=== PATIENT | female | born 1975 | race Caucasian/White ===

== ENCOUNTER 2016-09-07 20:19 | Emergency (ER) | payer BC ==
[~2016-09-07] VITALS: Ht 162.6 cm; Wt 84.4 kg
[~2016-09-07 20:19] MED LIST: CALC-464 PO; CALC-706 PO; CITA20TA12 PO; DESV50TA PO; FAMO20TA13 PO; FISH1CAP15 PO; HYDR25TA4 PO; LEVO125T6 PO; MULT-974 PO; NORG1TAB PO; OMEG1CAP51 PO; ONDA4TAB11 PO; TRAM50TA2 PO; VIT1TABL93 PO
[2016-09-07 20:38] LABS: BASOPHILS # (AUTO) 0.1 10^3/uL (0.0-0.1); BASOPHILS % (AUTO) 1 % (0-10); EOSINOPHILS # (AUTO) 0.2 10^3/uL (0.0-0.3); EOSINOPHILS % (AUTO) 2 % (0-10); LYMPHOCYTES # (AUTO) 4.9 X 10^3 (1.0-4.0); LYMPHOCYTES % (AUTO) 44 % (12-44); MEAN CORPUSCULAR HEMOGLOBIN 29 PG (25-34); MEAN CORPUSCULAR HGB CONC 34 G/DL (32-36); MEAN CORPUSCULAR VOLUME 86 FL (80-99); MEAN PLATELET VOLUME 10.3 FL (7.4-10.4); MONOCYTES # (AUTO) 0.8 X 10^3 (0.0-1.0); MONOCYTES % (AUTO) 7 % (0-12); NEUTROPHILS # (AUTO) 5.1 X 10^3 (1.8-7.8); NEUTROPHILS % (AUTO) 46 % (42-75); PLATELET COUNT 366 10^3/uL (130-400); RED BLOOD COUNT 4.48 10^6/uL (4.35-5.85); RED CELL DISTRIBUTION WIDTH 13.6 % (10.0-14.5); WHITE BLOOD COUNT 11.1 10^3/uL (4.3-11.0)
--- NOTE | 2016-09-07 20:44 | Diagnostic Imaging Report ---
INDICATION: Upper anterior chest pain x 3 days. EXAMINATION: Portable chest at 8:39 p.m. FINDINGS: Heart size and pulmonary vascularity are normal. Lungs are clear. There are no effusions or pneumothoraces. IMPRESSION: Negative chest. Dictated by: Dictated on workstation # [id number]
[2016-09-07 20:48] LABS: INR 0.9 (0.8-1.4); PROTHROMBIN TIME PATIENT 11.7 SEC (12.2-14.7)
[2016-09-07] MEDS ORDERED: ASPIRIN 81 MG CHEW (CHILDREN'S ASA) PO ONE (21:00)
[2016-09-07 21:04] LABS: ALANINE AMINOTRANSFERASE 16 U/L (0-55); ALBUMIN 4.1 G/DL (3.2-4.5); ANION GAP 11 MMOL/L (5-14); ASPARTATE AMINO TRANSFERASE 22 U/L (5-34); BILIRUBIN,TOTAL 0.2 MG/DL (0.1-1.0); BLOOD UREA NITROGEN 10 MG/DL (7-18); BUN/CREATININE RATIO 13; CALCIUM 8.9 MG/DL (8.5-10.1); CARBON DIOXIDE 26 MMOL/L (21-32); CHLORIDE 103 MMOL/L (98-107); GFR ESTIMATED > 60; GLUCOSE 102 MG/DL (70-105); MAGNESIUM 2.1 MG/DL (1.8-2.4); POTASSIUM 3.3 MMOL/L (3.6-5.0); TOTAL PROTEIN 7.1 G/DL (6.4-8.2)
[2016-09-07 21:14] LABS: SODIUM 140 MMOL/L (135-145)
--- NOTE | 2016-09-07 21:17 | ED Chest Pain ---
General Chief Complaint: Chest Pain Stated Complaint: CHEST PAIN Nursing Triage Note: PT TO ED 2 W/ C/O INTERMITTENT CP SINCE THURSDAY. 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 Nursing Sepsis Screen: No Definite Risk Source: patient Exam Limitations: no limitations History of Present Illness Time seen by provider: 20:23 Initial Comments This 40-year-old woman presents to the emergency room with complaints of intermittent chest pain since September 05. She has had associated lightheadedness. Today the patient started tonight at 19:00. She denies pain at this moment. Pain is sometimes worse with deep breathing and exertion. It is not relieved by rest. She reports recent dosing changes to her thyroid medication. She describes the pain as a heaviness and sometimes a tightness. She denies any shortness of breath, nausea, or diaphoresis. Review of her chart reveals a negative stress test in January of last year. There is no tachycardia or hypoxia. She has no lower extremity symptoms. Allergies and Home Medications Allergies Coded Allergies: Sulfa (Sulfonamide Antibiotics) (Verified Allergy, Unknown, 02/22/14) Home Medications Calcium Citrate/Ergocalciferol 1 Each Tablet, 1 EACH PO DAILY, (Reported) Citalopram Hydrobromide 20 Mg Tablet, 30 MG PO DAILY, (Reported) Famotidine 20 Mg Tablet, 20 MG PO BID for 30 Days Prescribed by: BETHANY DAVEY on 02/23/14 9180 Fish Oil/Dha/Epa 1 Each Capsule, 1 EACH PO DAILY, (Reported) Hydrochlorothiazide 25 Mg Tablet, 25 MG PO DAILY, (Reported) Levothyroxine Sodium 125 Mcg Tablet, 125 MCG PO DAILY, (Reported) Vit D3/Folic Acid/B2/B6/B12 1 Each Tablet, 1 EACH PO DAILY, (Reported) Review of Systems Constitutional: no symptoms reported EENTM: No Symptoms Reported Respiratory: See HPI Cardiovascular: See HPI Gastrointestinal: No Symptoms Reported Genitourinary: No Symptoms Reported Musculoskeletal: no symptoms reported Skin: no symptoms reported Psychiatric/Neurological: No Symptoms Reported Endocrine: See HPI Hematologic/Lymphatic: No Symptoms Reported Past Zfncnrj-Upzpkj-Ywhwcd Hx Patient Social History Alcohol Use: Denies Use Recreational Drug Use: No Smoking Status: Never a Smoker Recent Foreign Travel: No Contact w/Someone Who Travel: No Recent Infectious Disease Expo: No Recent Hopitalizations: No Immunizations Up To Date Tetanus Booster (TDap): More than 5yrs PED Vaccines UTD: No Date of Influenza Vaccine: Mar 24, 2013 Seasonal Allergies Seasonal Allergies: Yes Surgeries HX Surgeries: Yes (wisdom teeth) Surgeries: Thyroidectomy (hemithyroidectomy) Respiratory Hx Respiratory Disorders: No Cardiovascular Hx Cardiac Disorders: Yes Cardiac Disorders: Hypertension Neurological Hx Neurological Disorders: No Reproductive System Hx Reproductive Disorders: No Sexually Transmitted Disease: No HIV/AIDS: No Female Reproductive Disorders: Denies [employer] History: IUD (Mirena) Genitourinary Hx Genitourinary Disorders: No Gastrointestinal Hx Gastrointestinal Disorders: Yes (gluten intolerance) Gastrointestinal Disorders: Gastroesophageal Reflux Musculoskeletal Hx Musculoskeletal Disorders: No Endocrine Hx Endocrine Disorders: Yes (hypokalemia, insulin resistance) Endocrine Disorders: Hypothyroidsim HEENT HX ENT Disorders: No Hearing Impairment: Denies Cancer Hx Cancer: No Psychosocial Hx Psychiatric Problems: Yes Behavioral Health Disorders: Anxiety, Depression Integumentary HX Skin/Integumentary Disorder: No Blood Transfusions Hx Blood Disorders: No Adverse Reaction to a Blood Tr: No Family Medical History Significant Family History: No Pertinent Family Hx, Cancer (brain tumor) Family Medial History: Cancer of mouth 19 MOTHER (Brain tumer fibroids in uterus) Diabetes mellitus 19 FATHER Hypercholesterolemia 19 FATHER Hypertension 19 FATHER Physical Exam Vital Signs Vital Sign - Last 12Hours Capillary Refill : Less Than 3 Seconds General Appearance: No Apparent Distress, WD/WN HEENT: PERRL/EOMI, Normal ENT Inspection, Pharynx Normal Neck: Normal Inspection Respiratory: Chest Non Tender, Lungs Clear, Normal Breath Sounds, No Accessory Muscle Use, No Respiratory Distress Cardiovascular: Regular Rate, Rhythm, No Edema, No Murmur, Normal Peripheral Pulses Gastrointestinal: Non Tender, Soft Extremity: Normal Inspection, Non Tender, No Calf Tenderness, No Pedal Edema, Other (negative Shameka) Neurologic/Psychiatric: Alert, Oriented x3, No Motor/Sensory Deficits, Normal Mood/Affect, 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 Skin: Normal Color, Warm/Dry Progress/Results/Core Measures Results/Orders Lab Results Laboratory Tests Test 09/07/16 20:32 Range/Units White Blood Count 11.1 H 4.3-11.0 10^3/uL Red Blood Count 4.48 4.35-5.85 10^6/uL Hemoglobin 13.0 11.5-16.0 G/DL Hematocrit 38 35-52 % Mean Corpuscular Volume 86 80-99 FL Mean Corpuscular Hemoglobin 29 25-34 PG Mean Corpuscular Hemoglobin Concent 34 32-36 G/DL Red Cell Distribution Width 13.6 10.0-14.5 % Platelet Count 366 130-400 10^3/uL Mean Platelet Volume 10.3 7.4-10.4 FL Neutrophils (%) (Auto) 46 42-75 % Lymphocytes (%) (Auto) 44 12-44 % Monocytes (%) (Auto) 7 0-12 % Eosinophils (%) (Auto) 2 0-10 % Basophils (%) (Auto) 1 0-10 % Neutrophils # (Auto) 5.1 1.8-7.8 X 10^3 Lymphocytes # (Auto) 4.9 H 1.0-4.0 X 10^3 Monocytes # (Auto) 0.8 0.0-1.0 X 10^3 Eosinophils # (Auto) 0.2 0.0-0.3 10^3/uL Basophils # (Auto) 0.1 0.0-0.1 10^3/uL Prothrombin Time 11.7 L 12.2-14.7 SEC INR Comment 0.9 0.8-1.4 Activated Partial Thromboplast Time 30 24-35 SEC Sodium Level 140 135-145 MMOL/L Potassium Level 3.3 L 3.6-5.0 MMOL/L Chloride Level 103 98-107 MMOL/L Carbon Dioxide Level 26 21-32 MMOL/L Anion Gap 11 5-14 MMOL/L Blood Urea Nitrogen 10 7-18 MG/DL Creatinine 0.80 0.60-1.30 MG/DL Estimat Glomerular Filtration Rate > 60 BUN/Creatinine Ratio 13 Glucose Level 102 70-105 MG/DL Calcium Level 8.9 8.5-10.1 MG/DL Magnesium Level 2.1 1.8-2.4 MG/DL Total Bilirubin 0.2 0.1-1.0 MG/DL Aspartate Amino Transf (AST/SGOT) 22 5-34 U/L Alanine Aminotransferase (ALT/SGPT) 16 0-55 U/L Alkaline Phosphatase 87 40-136 U/L Myoglobin 38.7 10.0-92.0 NG/ML Troponin I < 0.30 <0.30 NG/ML Total Protein 7.1 6.4-8.2 G/DL Albumin 4.1 3.2-4.5 G/DL Thyroid Stimulating Hormone (TSH) 0.43 0.35-4.94 UIU/ML Free Thyroxine 1.13 0.70-1.48 NG/DL My Orders Orders - KATE WOODRUFF MD Cbc With Automated Diff (09/07/16 20:23) Magnesium (09/07/16 20:23) Chest 1 View, Ap/Pa Only (09/07/16 20:23) Ekg Tracing (09/07/16 20:23) Cardiac Profile 1 (09/07/16 20:23) Comprehensive Metabolic Panel (09/07/16 20:23) Myoglobin Serum (09/07/16 20:23) Protime With Inr (09/07/16 20:23) Partial Thromboplastin Time (09/07/16 20:23) O2 (09/07/16 20:23) Monitor-Rhythm Ecg Trace Only (09/07/16 20:23) Saline Lock/Iv-Start (09/07/16 20:23) Aspirin Chewable Tablet (Baby Aspirin Ch (09/07/16 21:00) Thyroid Stimulating Hormone (09/07/16 20:50) Free T4 (Free Thyroxine) (09/07/16 20:50) Potassium Chloride (Tablet) (Klor Con Ta (09/07/16 21:30) Medications Given in ED Vital Signs/I&O Vital Sign - Last 12Hours 09/07/16 09/07/16 09/07/16 20:21 20:21 21:45 Temp 97.1 Pulse 94 83 Resp 20 20 B/P (MAP) 130/81 Pulse Ox 97 97 O2 Delivery Room Air Room Air Blood Pressure Mean: 97 Progress Note : Progress Note Patient's cardiopulmonary workup was unremarkable. Patient is at relatively low risk for heart disease given lack of family history or smoking history. She also had a negative stress test January of last year. She was given the option for observation admission and consultation with a weight and balance control agent vs careful observation at home. She understands CAD cannot be completely ruled out in the ER and commits to returning if symptoms worsen. She elects outpatient follow-up. ASA was administered and she remained pain free throughout her ER stay. ECG Initial ECG Impression Date: Sep 07, 2016 Initial ECG Impression Time: 20:29 Initial ECG Rate: 91 Initial ECG Rhythm: Normal Sinus Initial ECG Intervals: Normal Initial ECG Impression: Normal Comment NSR with no ST elevation or depression. No abnormal intervals or axis deviation. No acute change from prior. Diagnostic Imaging Diagonstic Imaging: Xray Plain Films/CT/US/NM/MRI: chest Comments Chest x-ray report reviewed. See report below: NAME: [facility] REC#: [id number] PT STATUS: REG ER : 1975 PHYSICIAN: KATE WOODRUFF MD ADMIT DATE: 09/07/16/ER Signed Date of Exam: 09/07/16 CHEST 1 VIEW, AP/PA ONLY INDICATION: Upper anterior chest pain x 3 days. EXAMINATION: Portable chest at 8:39 p.m. FINDINGS: Heart size and pulmonary vascularity are normal. Lungs are clear. There are no effusions or pneumothoraces. IMPRESSION: Negative chest. Dictated by: Dictated on workstation # [id number] Dict: 09/07/162041 Trans: 09/07/162043 [facility] [id number] Interpreted by: IVAN HORN Electronically signed by:IVAN HORN 09/07/162043 Departure Impression Impression: Primary Impression: Atypical chest pain Additional Impression: Hypokalemia Disposition: 01 HOME, SELF-CARE Condition: Improved Departure-Patient Inst. Decision time for Depature: 21:31 Referrals: BRE BROOKE DO (PCP/Family) Primary Care Physician Patient Instructions: Chest Pain (DC) Add. Discharge Instructions: Follow-up with Dr. Brooke as soon as possible. Until then, take aspirin 81 mg daily. Continue with your antacid and potassium supplement. Discuss further cardiac evaluation with Dr. Brooke as well as discontinuing hydrochlorothiazide as it may be partly responsible for your low potassium. Your thyroid tests were normal today. All discharge instructions reviewed with patient and/or family. Voiced understanding. Copy Copies To 1: BRE BROOKE JOSHUA T MD Sep 07, 2016 21:17
[2016-09-07 21:26] LABS: MYOGLOBIN SERUM 38.7 NG/ML (10.0-92.0)
[2016-09-07] MEDS ORDERED: KCL 10 MEQ TAB (MICRO K) PO ONE (21:30)
[2016-09-07 21:33] LABS: THYROID STIMULATING HORMONE 0.43 UIU/ML (0.35-4.94)
[2016-09-07 21:45] VITALS: BP 112/60
--- OUTSIDE RECORDS SUMMARY | 2016-10-12 04:31 | XMS REPORT ---
Author Author VALE ANGELES [facility] eClinicalWorks Address Unknown Phone Unavailable Care Team Providers Care Cytology Teacher Name Role Phone VALE ANGELES CP Unavailable Allergies No Known Allergies Problems Problem Type Condition Code Onset Dates Condition Status Problem Headache 784.0 Active Problem Other diseases of nasal cavity and sinuses 478.19 Active Problem Sinusitis, acute 461.9 Active Assessment Need for Tdap vaccination Z23 Active Problem Acute upper respiratory infections of unspecified site 465.9 Active Problem Need for prophylactic vaccination and inoculation, Influenza V04.81 Active Medications No Known Medications Procedures Procedure Coding System Code Date SINGLE IMMUNIZATION ADMIN CPT-4 46770 Mar 28, 2015 TDAP (BOOSTRIX) CPT-4 22255 Mar 28, 2015 Results No Known Results Immunizations Vaccine Administration Date TDAP (BOOSTRIX) Mar 28, 2015 Summary Purpose eClinicalWorks Submission
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
== END 2016-09-07 21:45 | disposition home or self-care (01) ==
LOC: EDUNIT# 20:19 → ER 20:22
DX: R07.89 Other chest pain (principal); E87.6 Hypokalemia; I10 Essential (primary) hypertension
CPT/HCPCS: 36415; 71010; 80053; 83735; 83874; 84439; 84443; 84484; 85025; 85610; 85730; 93005; 93041

== ENCOUNTER → 2016-09-09 | Outpatient (CLI) | payer BC ==
--- NOTE | 2016-09-09 14:30 | Diagnostic Imaging Report ---
PROCEDURE: US Thyroid. TECHNIQUE: Multiple real-time grayscale images were obtained of the thyroid in various projections. INDICATION: Thyroid nodules. FINDINGS: The previous thyroid ultrasound exam performed on 03/26/2016 noted nodules in the left lobe of the thyroid. These nodules appear stable when compared to the prior thyroid ultrasound exam of 09/24/2011. On this exam, the nodules in the left lobe also seem similar to the previous studies. Specifically, the 1.7 x 0.9 x 0.9 cm area of mixed echogenicity in the superior pole of the left lobe of the thyroid is essentially no different. The smaller 0.6 x 0.4 x 0.6 cm hypoechoic lesion in the inferior pole does seem somewhat better defined than on the prior exam. The right lobe is surgically absent. Left lobe of the thyroid itself is not enlarged measuring 4.1 x 1.2 x 1.6 cm (normal 4-5 x 2 x 2 cm or less). IMPRESSION: 1. The nodules in the left lobe of the thyroid seen previously appear stable. No new abnormality has developed. 2. The right lobe of the thyroid is surgically absent. Dictated by: Dictated on workstation # [id number]
== END ==
LOC: RAD 12:23
PROVIDERS: ATTEND Plastic Surgery Plastic Surgery Within the Head and Neck
DX: E04.1 Nontoxic single thyroid nodule (principal)
CPT/HCPCS: 76536

== ENCOUNTER 2017-03-20 16:19 | Outpatient (CLI) | payer BC | END 2017-03-20 16:41 | disposition home or self-care (01) | LOC: SLEEP 16:19 | PROVIDERS: ATTEND Internal Medicine | DX: G47.33 Obstructive sleep apnea (adult) (pediatric) (principal); I10 Essential (primary) hypertension ==

== ENCOUNTER 2022-04-07 15:17 | Emergency (ER) | payer BC ==
[~2022-04-07] VITALS: Ht 162.5 cm; Wt 87.0 kg
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
--- NOTE | 2022-04-07 16:08 | Diagnostic Imaging Report ---
EXAMINATION: CT head without contrast. TECHNIQUE: Multiple contiguous axial images were obtained through the brain without the use of intravenous contrast. All CT scans use one or more of the following dose optimizing techniques: Automated exposure control, MA and/or KvP adjustment based on patient size and exam type or iterative reconstruction. HISTORY: Hit the top of the head on Thursday. Persistent headache. COMPARISON: None available. FINDINGS: No large acute territorial ischemia, mass, or hemorrhage. No midline shift or mass effect. The ventricles, cortical sulci, and basilar cisterns are patent and unremarkable. The orbits are normal. Paranasal sinuses are normal. Mastoid air cells are clear. No soft tissue abnormality is seen. No osseous lesions or fractures are seen. IMPRESSION: 1. No large acute territorial ischemia, mass, or hemorrhage. Dictated by: Dictated on workstation # [id number]
[2022-04-07 16:26] VITALS: BP 109/47
== END 2022-04-07 16:28 | disposition home or self-care (01) ==
LOC: EDUNIT# 15:17 → ER 15:20
DX: S09.90XA Unspecified injury of head, initial encounter (principal); W22.8XXA Striking against or struck by other objects, initial encounter; Y92.410 Unspecified street and highway as the place of occurrence of the external cause
CPT/HCPCS: 70450